=== PATIENT | male | born 1955 | race Caucasian/White ===

== ENCOUNTER 2022-07-01 10:47 | Emergency (ER) | payer SELFPAY ==
[2022-07-01] MEDS ORDERED: ETOMIDATE 20 MG/10 ML VIAL IV ONE (10:48)
[2022-07-01] MEDS ORDERED: RSI MEDICATION KIT IV ONE (10:57)
[2022-07-01 11:08] LABS: Arterial Blood Carboxyhemoglob 0.4 % (0-1.5); Blood Gas Oxyhemoglobin 97.5 % (94-97); Blood O2 Saturation 99.1 % (92-98.5)
[2022-07-01] MEDS ORDERED: D5W 100 ML IV ONE (11:12)
[2022-07-01] MEDS ORDERED: AMIODARONE IN DEXTROSE,ISO-OSM 0 MG/0 ML BAG IV ONE (11:12)
--- NOTE | 2022-07-01 11:17 | RAD REPORT ---
EXAM DESCRIPTION: RAD - Chest Single View - 07/01/2022 11:10 am CLINICAL HISTORY: s/p cpr Chest pain. COMPARISON: No comparisons FINDINGS: Portable technique limits examination quality. Tip of the endotracheal tube is at the level of the superior aortic arch. Grossly clear lungs. The he art is normal in size. No displaced fractures.
[2022-07-01 11:25] LABS: Urine Blood 2+ (Negative); Urine Glucose 2+ (Negative); Urine Protein 3+ (Negative); Urine Specific Gravity 1.025 (1.005-1.030)
[2022-07-01 11:34] LABS: Absolute Lymphocytes (CBC) 6.1 K/uL (0.7-4.9); Hematocrit 42.3 % (39.6-49.0); Lymphocytes % 43.6 % (15.3-44.8); MCV 84.6 fL (80-100); MPV 9.4 fL (7.6-11.3); RBC Red Blood Cell Count 5.01 M/uL (4.33-5.43)
[2022-07-01 11:42] LABS: Protime INR 1.01
[2022-07-01 11:54] LABS: Albumin 3.3 g/dL (3.4-5.0); Bilirubin Direct 0.3 mg/dL (0-0.2); Bilirubin Total 0.7 mg/dL (0.2-1.0); Magnesium 2.5 mg/dL (1.8-2.4); Potassium 3.2 mmol/L (3.5-5.1); Protein, Total 6.9 g/dL (6.4-8.2)
[2022-07-01 11:55] LABS: SARS-CoV-2 Antigen Rapid Res Negative (Negative)
[2022-07-01 11:56] LABS: Troponin High Sensitivity 820.1 pg/mL (<58.9)
--- NOTE | 2022-07-01 12:28 | RAD REPORT ---
EXAM DESCRIPTION: CT - Head Brain Wo Cont - 07/01/2022 12:10 pm CLINICAL HISTORY: collapse, unresponsive, post CPR Headache, drowsiness, alteration of consciousness COMPARISON: No comparisons TECHNIQUE: All CT scans are performed using dose optimization technique as appropriate and may inclu de automated exposure control or mA/KV adjustment according to patient size. FINDINGS: No intracranial hemorrhage, hydrocephalus or extra-axial fluid collection.No areas of brai n edema or evidence of midline shift. The paranasal sinuses and mastoids are clear. The calvarium is intact. IMPRESSION: No acute intracranial abnormality.
--- NOTE | 2022-07-01 12:37 | EDPHYS ---
Physician Documentation [facility] Name: Mihir Newton Age: 66 yrs Sex: Male : 1955 Arrival Date: 07/01/2022 Time: 10:48 Bed 3 Private MD: ED Physician Sanket Hilton HPI: 07/01 11:56 This 66 yrs old Male presents to ER via EMS with complaints of collpase, s/p CPR. rn 11:56 Preceding the arrest, the patient collapsed. The arrest occurred [facility]. rn Pre-hospital course: The arrest was witnessed Bystanders at the scene performed CPR. EMS care prior to arrival: initiation of ACLS, peripheral IV, oxygen, backboard, ACLS has been in progress for 17 minutes. ACLS details: Initial rhythm was V-fib. The presenting rhythm is tachycardia. Airway: ambu bag, Defibrillated X 2, Response to therapy: return of rhythm, return of pulse, return of respirations. It is unknown whether or not the patient has had similar symptoms in the past. Per EMS, collapsed, at [facility], + bystander CPR. initial rhythm Vfib, s/p 2 shocks, with ROSC after 17 minutes. Given epi x 1. here, states cough recently but no fever. Has complained about "irregular heart beat" for "some time". No known problems. . Historical: - Allergies: 11:37 Unable to obtain; kr3 - PMHx: 11:37 Unable to Obtain; kr3 - PSHx: 11:37 Unable to Obtain; kr3 - Immunization history:: unknown unresponsive. - Social history:: Smoking status: unknown. - Family history:: not pertinent. - Hospitalizations: : No recent hospitalization is reported. ROS: 11:56 Unable to obtain ROS due to patient is on ventilator. rn Exam: 11:56 Constitutional: This is a well developed, well nourished patient, + sonorous rn respirations, gag reflex present. Head/Face: Normocephalic, atraumatic. Eyes: Pupils 3mm, reactive. Cardiovascular: Tachycardic, irregular. No pulse deficits. Respiratory: + bilateral crackles, sonorous respirations. Abdomen/GI: soft, non-distended Skin: Warm, dry MS/ Extremity: Pulses equal, no cyanosis. Neuro: GCS 3 13:13 ECG was reviewed by the Attending Physician. rn Vital Signs: 10:49 BP 118 / 91; Pulse 99; Resp 22; Pulse Ox 100% on ETT vent; kr3 10:52 BP 112 / 80; Pulse 93; Resp 21; Pulse Ox 100% on R/A; kr3 10:55 BP 103 / 75; Pulse 90; Resp 20; Temp 99.3(R); Pulse Ox 99% on ETT vent; kr3 11:00 BP 118 / 85; Pulse 88; Resp 18; kr3 11:04 BP 103 / 78; Pulse 85; Resp 18; Pulse Ox 98% on ETT vent; kr3 11:10 BP 101 / 73; Pulse 85; Resp 18; Pulse Ox 97% on ETT vent; kr3 11:16 BP 109 / 78; Pulse 77; Resp 19; Pulse Ox 97% on ETT vent; kr3 11:27 BP 130 / 109; Pulse 98; Resp 12; Temp 97.2(TE); Pulse Ox 100% on ETT ambu; Weight 70 kr3 kg; Pain 0/10; 11:54 BP 118 / 85; Pulse 90; Resp 22; Pulse Ox 99% on ETT vent; kr3 12:30 BP 115 / 83; Pulse 85; Pulse Ox 100% ; kr3 13:00 BP 122 / 79; Pulse 93; Resp 21; Pulse Ox 100% ; kr3 13:30 BP 121 / 84; Pulse 97; Resp 22; Pulse Ox 100% ; kr3 13:43 Weight 80 kg (M); kr3 13:50 BP 127 / 78; Pulse 85; Resp 21; Pulse Ox 99% ; kr3 Procedures: 11:14 Intubation: Ventilated with 100% NRB prior to procedure. O2 saturation prior to internet programmer was 95 %. Intubated orally using # 4 Ijeoma blade with 7.5 mm ETT. was successful on first attempt. Cricoid pressure applied during procedure. Tube secured with ETT hill at right side of mouth measured 22 cm at teeth. Placement verified by CXR, auscultating bilateral breath sounds, O2 saturation after procedure was 98 %. Patient tolerated well. Central Line: the site was prepped with Betadine, in sterile fashion, a triple lumen catheter was inserted, in the right femoral vein, in 1 attempts. placement was verified, by CXR, the site was dressed with Tegaderm, using sterile technique, the patient tolerated the procedure, well. MDM: 11:01 Patient medically screened. rn 12:35 Differential diagnosis: arrythmia, cardiac arrest, respiratory arrest. Data reviewed: rn vital signs, nurses notes, lab test result(s), EKG, radiologic studies, CT scan, plain films, and as a result, I will admit patient. Counseling: I had a detailed discussion with the patient and/or guardian regarding: the historical points, exam findings, and any diagnostic results supporting the discharge/admit diagnosis, lab results, radiology results, the need to transfer to another facility, for higher level of care. Response to treatment: the patient's symptoms have mildly improved after treatment, and as a result, I will admit patient. Admission orders: after a detailed discussion of the patient's condition and case, the admit orders are written by me. 13:11 ED course: NO sign of infection at this point, elevated lactate likely related to poor rn perfusion from Vfib arrest. . 13:12 ED course: Accepted for transfer to [facility] for higher level of care, and internet programmer evaluation/cath. 07/01 10:57 Order name: Basic Metabolic Panel; Complete Time: 12:34 07/01 10:57 Order name: CBC with Diff; Complete Time: 11:46 07/01 10:57 Order name: LFT's; Complete Time: 12:34 eb 07/01 10:57 Order name: Magnesium; Complete Time: 12:34 07/01 10:57 Order name: NT PRO-BNP; Complete Time: 12:34 07/01 10:57 Order name: PT-INR; Complete Time: 11:46 07/01 10:57 Order name: Troponin HS; Complete Time: 12:34 07/01 11:02 Order name: ABG; Complete Time: 11:46 rn 07/01 11:02 Order name: Blood Culture Adult (2) rn 07/01 11:02 Order name: Lactate; Complete Time: 12:34 rn 07/01 11:02 Order name: Urine Culture rn 07/01 10:57 Order name: XRAY Chest (1 view); Complete Time: 11:46 07/01 10:57 Order name: EKG; Complete Time: 10:58 07/01 11:02 Order name: Flu; Complete Time: 12:34 rn 07/01 11:05 Order name: Influenza Screen (A ; Complete Time: 12:34 EDMS 07/01 11:13 Order name: CT Head Brain wo Cont; Complete Time: 12:34 rn 07/01 11:25 Order name: Urine Dipstick-Ancillary; Complete Time: 11:46 EDMS 07/01 11:35 Order name: PTT, Activated Partial Thromb; Complete Time: 11:46 EDMS 07/01 10:57 Order name: Cardiac monitoring; Complete Time: 11:06 eb 07/01 10:57 Order name: EKG - Nurse/Tech; Complete Time: 11:06 eb 07/01 10:57 Order name: IV Saline Lock; Complete Time: 11:06 eb 07/01 10:57 Order name: Labs collected and sent; Complete Time: 11: eb 07/01 10:57 Order name: O2 Per Protocol; Complete Time: 11:06 eb 07/01 10:57 Order name: O2 Sat Monitoring; Complete Time: 11:06 eb 07/01 11:02 Order name: Accucheck; Complete Time: 11:42 rn 07/01 11:02 Order name: IV Saline Lock - Large Bore; Complete Time: 11:06 rn EC:13 Rate is 95 beats/min. Rhythm is irregular. Left axis deviation noted. QRS is positive rn in lead I and negative in lead aVF. IA interval is normal. QRS interval is normal. QT interval is normal. No Q waves. T waves are Normal. No ST changes noted. Clinical impression: NSR w/ Non-specific ST/T Changes and PVCs. Interpreted by me. Reviewed by me. Administered Medications: 10:44 Drug: NS 0.9% 1000 ml Route: IV; Rate: 1 bolus; Site: left antecubital; kr3 11:42 Follow up: Response: No adverse reaction; IV Status: Completed infusion; IV Intake: kr3 1000ml 10:51 Drug: Propofol 5 mcg/kg/min Route: IV; Rate: calculated rate; Site: right antecubital; kr3 13:52 Follow up: IV Status: Infusion continued kr3 10:51 Drug: Propofol 5 mcg/kg/min {Note: RASS -2 .} Route: IV; Rate: calculated rate; Site: kr3 right antecubital; 10:52 Drug: Magnesium Sulfate 1 grams Route: IVPB; Infused Over: 1 hrs; Site: left kr3 antecubital; 11:42 Follow up: Response: No adverse reaction; IV Status: Completed infusion; IV Intake: kr3 100ml 11:02 Drug: amiodarone 150 mg Volume: 100 ml; Route: IVPB; Infused Over: 10 mins; Site: left kr3 antecubital; 11:43 Follow up: Response: No adverse reaction; IV Status: Completed infusion; IV Intake: kr3 100ml 11:16 Drug: amiodarone 900 mg, D5W 500 ml Route: IVPB; Rate: 1 mg/min; Site: left antecubital;kr3 11:43 Follow up: Response: No adverse reaction kr3 13:52 Follow up: IV Status: Infusion continued upon transfer kr3 13:29 Drug: Midazolam 2 mg {Note: right femoral.} Route: IVP; Site: Other; kr3 13:52 Follow up: Response: No adverse reaction kr3 13:30 Drug: Potassium Chloride 10 mEq {Note: right femoral.} Route: IV; Rate: calculated kr3 rate; Site: Other; 13:53 Follow up: IV Status: Completed infusion kr3 13:43 Drug: Heparin (ND Drip) 12 units/kg/hr - (HEParin 09451 units, D5W 500 ml) kr3 {Co-Signature: aa5 (Martha Cid RN).} Route: IV; Rate: calculated rate; Site: right femoral; 13:52 Follow up: IV Status: Infusion continued kr3 Disposition: 12:35 Critical Care:. rn Disposition Summary: 07/01/22 12:36 Transfer Ordered Transfer Location: [facility] rn Reason: Higher level of care rn Condition: Stable rn Problem: new rn Symptoms: have improved rn Accepting Physician: (07/01/22 14:10) kr3 Diagnosis - Ventricular fibrillation rn - Subsequent non-ST elevation (NSTEMI) myocardial infarction rn - Cardiac arrest, cause unspecified rn Forms: - Medication Reconciliation Form rn - SBAR form rn school time excluding procedures: 12:35 Critical care time: Bedside Care: 35 minutes, Family Intervention: 5 minutes. Total rn time: 40 minutes Signatures: Dispatcher BaironHoNoris Mccall RN RN iw Nieto, Roman, MD MD rn Botello, Pao eb Arsalan, Bhavani, RN RN kr3 Martha Cid RN aa5 Corrections: (The following items were deleted from the chart) 11:35 11:03 COMPREHENSIVE METABOLIC PANEL+C.LAB.BRZ ordered. EDMS EDMS 1135 11:03 PTT, ACTIVATED+COAG.LAB.BRZ ordered. EDMS EDMS 12:57 12:36 Dr. godoy rn 14:10 12:57 Dr. godoy kr3
--- NOTE | 2022-07-01 12:37 | ER ---
Nurse's Notes [facility] Name: Mihir Newton Age: 66 yrs Sex: Male : 1955 Arrival Date: 07/01/2022 Time: 10:48 Bed 3 Private MD: Diagnosis: Ventricular fibrillation;Subsequent non-ST elevation (NSTEMI) myocardial infarction;Cardiac arrest, cause unspecified Presentation: 07/01 11:27 Chief complaint: EMS states: witnessed at an estate sale falling to the ground kr3 unresponsive with agonal respirations. bystander started CPR for approx 3 minutes before EMS arrival. no pulse and no respirations upon EMS arrival. CPR for 17 minutes in route. given 1 round of epi. defibrillated twice due to v fib. spontaneous respiration and pulse upon arrival to ED, 18 G LAC, 300 ml bolus NS, FSBS 174. Coronavirus screen: unknown unresponsive. Ebola Screen: Unable to complete the Ebola screening because: Patient is unresponsive. Initial Sepsis Screen: Does the patient meet any 2 criteria? No. Patient's initial sepsis screen is negative. Does the patient have a suspected source of infection? No. Patient's initial sepsis screen is negative. Risk Assessment: Do you want to hurt yourself or someone else? Patient reports no desire to harm self or others. Onset of symptoms was July 01, 2022. 11:27 Method Of Arrival: EMS: [facility] 3 11:27 Acuity: STEVIE 1 kr3 Triage Assessment: 11:38 General: Appears ill, Behavior is unresponsive. Pain: Denies pain. kr3 Historical: - Allergies: 11:37 Unable to obtain; kr3 - PMHx: 11:37 Unable to Obtain; kr3 - PSHx: 11:37 Unable to Obtain; kr3 - Immunization history:: unknown unresponsive. - Social history:: Smoking status: unknown. - Family history:: not pertinent. - Hospitalizations: : No recent hospitalization is reported. Screenin:50 Abuse screen: Denies threats or abuse. Nutritional screening: No deficits noted. kr3 Tuberculosis screening: No symptoms or risk factors identified. Fall Risk Secondary diagnosis (15 points) impaired mobility, IV access (20 points). Mental Status- Overestimates/Forgets Limitations (15 pts.). Total Paris Fall Scale indicates High Risk Score (45 or more points). Fall prevention measures have been instituted. Side Rails Up X 2 Placed Close to Nursing Station Frequent Obs/Assessments Occuring Family Present and informed to notify staff if the need to leave the bedside As available patient and family educated on Fall Prevention Program and Strategies. Assessment: 11:43 Reassessment: propofol rate changed to 4.2 ml/hr, RASS -2. kr3 11:53 Reassessment: propofol rate changed to 15 mcg/kg/min, RASS -2. kr3 11:58 Reassessment: propofol rate changed to 20 mcg/kg/min, RASS -2. kr3 12:23 Reassessment: back from CT, propofol rate changed to 25 mcg/kg/min. kr3 12:25 Reassessment: No changes from previously documented assessment. Patient and/or family kr3 updated on plan of care and expected duration. Pain level reassessed. family at bedside. 13:00 Reassessment: No changes from previously documented assessment. Patient and/or family kr3 updated on plan of care and expected duration. Pain level reassessed. 13:51 Reassessment: No changes from previously documented assessment. Patient and/or family kr3 updated on plan of care and expected duration. Pain level reassessed. Vital Signs: 10:49 BP 118 / 91; Pulse 99; Resp 22; Pulse Ox 100% on ETT vent; kr3 10:52 BP 112 / 80; Pulse 93; Resp 21; Pulse Ox 100% on R/A; kr3 10:55 BP 103 / 75; Pulse 90; Resp 20; Temp 99.3(R); Pulse Ox 99% on ETT vent; kr3 11:00 BP 118 / 85; Pulse 88; Resp 18; kr3 11:04 BP 103 / 78; Pulse 85; Resp 18; Pulse Ox 98% on ETT vent; kr3 11:10 BP 101 / 73; Pulse 85; Resp 18; Pulse Ox 97% on ETT vent; kr3 11:16 BP 109 / 78; Pulse 77; Resp 19; Pulse Ox 97% on ETT vent; kr3 11:27 BP 130 / 109; Pulse 98; Resp 12; Temp 97.2(TE); Pulse Ox 100% on ETT ambu; Weight 70 kr3 kg; Pain 0/10; 11:54 BP 118 / 85; Pulse 90; Resp 22; Pulse Ox 99% on ETT vent; kr3 12:30 BP 115 / 83; Pulse 85; Pulse Ox 100% ; kr3 13:00 BP 122 / 79; Pulse 93; Resp 21; Pulse Ox 100% ; kr3 13:30 BP 121 / 84; Pulse 97; Resp 22; Pulse Ox 100% ; kr3 13:43 Weight 80 kg (M); kr3 13:50 BP 127 / 78; Pulse 85; Resp 21; Pulse Ox 99% ; kr3 ED Course: 10:44 Inserted saline lock: 18 gauge in right antecubital area, using aseptic technique. kr3 Blood collected. 10:45 intubated with 7.5 ET tube, 21 cm at the teeth, one attempt no problems intubating. kr3 10:45 Assist ventilation with ventilator. kr3 10:48 Patient arrived in ED. eb 10:49 Waters cath inserted, using sterile technique, 16 Fr., by wv, balloon inflated, to kr3 gravity drainage. 10:52 EKG done, by ED staff. kr3 10:55 Inserted right femoral triple lumen inserted by Dr. Hilton, see his note for further kr3 details. 10:56 Sanket Hilton MD is Attending Physician. eb 11:12 XRAY Chest (1 view) In Process Unspecified. EDMS 11:24 Bhavani Arriaza, YUNG is Primary Nurse. kr3 11:37 Triage completed. kr3 11:44 Maintain EMS IV. Dressing intact. Good blood return noted. Site clean \T\ dry. Gauge \T\ kr 3 site: 18 LAC. 12:11 CT Head Brain wo Cont In Process Unspecified. EDMS 12:20 NGT: inserted 16 Fr. other OG verified placement of air over stomach, to intermittent kr3 suction. Patient tolerated well. 12:39 initiated a transfer with Kosta Riggins from the [facility]. eb 13:07 connected the jet piercer operator machine operations supervisor for [facility] with Dr. Hilton for patient transfer eb consultation. 13:09 administrative approval given by Kosta Riggins/ patient has been accepted to [facility] bed 6218/ Dr. Montoya has accepted the patient for transfer/ report to be called to [phone]. 13:51 No provider procedures requiring assistance completed. Patient transferred, IV remains kr3 in place. 13:51 Arm band placed on Patient placed. kr3 13:52 Patient has correct armband on for positive identification. kr3 Administered Medications: 10:44 Drug: NS 0.9% 1000 ml Route: IV; Rate: 1 bolus; Site: left antecubital; kr3 11:42 Follow up: Response: No adverse reaction; IV Status: Completed infusion; IV Intake: kr3 1000ml 10:51 Drug: Propofol 5 mcg/kg/min Route: IV; Rate: calculated rate; Site: right antecubital; kr3 13:52 Follow up: IV Status: Infusion continued kr3 10:51 Drug: Propofol 5 mcg/kg/min {Note: RASS -2 .} Route: IV; Rate: calculated rate; Site: kr3 right antecubital; 10:52 Drug: Magnesium Sulfate 1 grams Route: IVPB; Infused Over: 1 hrs; Site: left kr3 antecubital; 11:42 Follow up: Response: No adverse reaction; IV Status: Completed infusion; IV Intake: kr3 100ml 11:02 Drug: amiodarone 150 mg Volume: 100 ml; Route: IVPB; Infused Over: 10 mins; Site: left kr3 antecubital; 11:43 Follow up: Response: No adverse reaction; IV Status: Completed infusion; IV Intake: kr3 100ml 11:16 Drug: amiodarone 900 mg, D5W 500 ml Route: IVPB; Rate: 1 mg/min; Site: left antecubital;kr3 11:43 Follow up: Response: No adverse reaction kr3 13:52 Follow up: IV Status: Infusion continued upon transfer kr3 13:29 Drug: Midazolam 2 mg {Note: right femoral.} Route: IVP; Site: Other; kr3 13:52 Follow up: Response: No adverse reaction kr3 13:30 Drug: Potassium Chloride 10 mEq {Note: right femoral.} Route: IV; Rate: calculated kr3 rate; Site: Other; 13:53 Follow up: IV Status: Completed infusion kr3 13:43 Drug: Heparin ([place] Drip) 12 units/kg/hr - (HEParin 97884 units, D5W 500 ml) kr3 {Co-Signature: aa5 (Martha Cid RN).} Route: IV; Rate: calculated rate; Site: right femoral; 13:52 Follow up: IV Status: Infusion continued kr3 Medication: 13:52 VIS not applicable for this client. kr3 Intake: 11:42 IV: 1000ml; Total: 1000ml. kr3 11:42 IV: 100ml; Total: 1100ml. kr3 11:43 IV: 100ml; Total: 1200ml. kr3 Outcome: 12:36 ER care complete, transfer ordered by . rn 13:51 Transferred by helicopter to [facility], Transfer form completed. kr3 Note: report called to Fredrick Harp RN 13:51 Condition: stable 13:51 Instructed on the need for transfer. 13:58 Condition: Vanna Aldridge [phone] notified of transfer to [facility]. kr3 14:10 Patient left the ED. kr3 Signatures: Dispatcher [employer] EDMS Sanket Hilton MD MD rn Botello, Elizabeth eb Reid, Kelley, RN RN kr3 Martha Cid RN aa5 Corrections: (The following items were deleted from the chart) 12:31 12:30 Reassessment: No changes from previously documented assessment. Patient and/or kr3 family updated on plan of care and expected duration. Pain level reassessed. family at bedside kr3 13:54 13:51 Transferred by helicopter to [facility], Transfer form kr3 completed. kr3
[2022-07-01] MEDS ORDERED: MIDAZOLAM HCL 2 MG/2 ML INJ ONE (13:26)
[2022-07-01] MEDS ORDERED: KCL 20 MEQ/100 mL IVPB 100 ML IV ONE (13:26)
[2022-07-01] MEDS ORDERED: HEPARIN/D5W 25,000 UNIT/500 ML BAG IV ONE (13:47)
[2022-07-01] MEDS ORDERED: AMIODARONE IN DEXTROSE,ISO-OSM 360 MG/200 ML BAG IV ONE (14:03)
[2022-07-02 23:49] VITALS: TEMP 97.2
[2022-07-03 01:22] VITALS: BP 127/78; O2SAT 99
--- NOTE | 2022-07-03 14:11 | EKG ---
Test Date: 2022-07-01 Test Time: 10:58:41 Lockstitch Waistline Joiner: RANJNAA MEASUREMENT RESULTS: Intervals: Rate: 95 WV: 184 QRSD: 132 QT: 378 QTc: 475 [place]: P: 38 WV: 184 QRS: -80 T: -69 INTERPRETIVE STATEMENTS: Sinus rhythm with occasional premature ventricular complexes Possible Left atrial enlargement Left axis deviation Nonspecific intraventricular block T wave abnormality, consider inferolateral ischemia Abnormal ECG No previous ECG available for comparison Electronically Signed On 07-03-22 14:09:22 CDT by Yohannes Waddell
== END 2022-07-01 14:10 | disposition short-term general hospital (02) ==
LOC: ER 10:47
PROC: 0BH17EZ Insertion of Endotracheal Airway into Trachea, Via Natural or Artificial Opening (ICD-10-PCS; principal; 2022-07-01)
PROC: 5A1935Z Respiratory Ventilation, Less than 24 Consecutive Hours (ICD-10-PCS; 2022-07-01)
PROC: 06HM33Z Insertion of Infusion Device into Right Femoral Vein, Percutaneous Approach (ICD-10-PCS; 2022-07-01)
DX: I46.9 Cardiac arrest, cause unspecified (principal); I22.2 Subsequent non-ST elevation (NSTEMI) myocardial infarction; I21.9 Acute myocardial infarction, unspecified; I49.01 Ventricular fibrillation
CPT/HCPCS: 31500; 36415; 51702; 70450; 71045; 80048; 80076; 81003; 82805; 83605; 83735; 83880; 84484; 85025; 85610; 85730; 87040; 87086; 87088; 87804; 87811; 93005; 94002; 94003; 99291; J0282; J1644; J2250; J3480